=== PATIENT | female | born 1945 | race Caucasian/White ===

== ENCOUNTER → 2016-12-02 | Outpatient (CLI) | payer MEDICARE, OTHER ==
--- NOTE | 2016-12-03 07:48 | MRI ---
EXAM DESCRIPTION: Cervical Spine CLINICAL HISTORY: OTHER SPONDYLOSIS WITH MYELOPATHY COMPARISON: X-rays November 30, 2016 TECHNIQUE: Multiplanar MRI of the cervical spine was performed without contrast. FINDINGS: There is solid interbody fusion from C4 through C6. Mild straightening of the normal cervical lordosis is seen. There is moderate increased signal on T2 and decreased signal on T1-weighted sequences involving the left C2-3 facet joint with moderate subcortical cyst of the left posterior element of C2 measuring 13 mm. Craniocervical junction is maintained. A normal basilar flow void is seen. Spinal cord shows normal MRI signal. C1-2 and craniocervical junction Unremarkable C2-3 Disc desiccation and mild loss of disc space height is seen. Moderate left and mild right facet hypertrophic and degenerative changes are seen with mild left foraminal encroachment. C3-4 Disc desiccation and moderate to severe disc space narrowing is seen. Minimal ventral ridging disc osteophyte complex and mild posterior ligamentum flavum thickening seen. There is mild to moderate spinal canal stenosis with thecal sac measuring 6.5 mm AP centrally. Mild bilateral facet hypertrophic and degenerative changes asymmetric on the right contributes to mild bilateral foraminal encroachment. C4-5 Postsurgical changes as described above. No significant bony spinal canal stenosis or foraminal encroachment is seen. There is facet arthrodesis bilaterally. C5-6 Postsurgical changes as described above. Minimal ventral ridging osteophyte in the left paracentral region contacts the ventral surface of the spinal cord contributing to mild to moderate spinal canal stenosis. The thecal sac measures 6 mm AP centrally. No significant foraminal encroachment. C6-7 Disc desiccation and severe disc space narrowing is seen. A 2 mm broad-based ventral ridging disc osteophyte complex is seen with posterior ligamentum flavum thickening contributing to mild to moderate spinal canal stenosis. The thecal sac measures 6.5 mm AP centrally. Mild bilateral facet hypertrophic and degenerative changes are seen with moderate left foraminal encroachment. C7-T1 Mild disc space narrowing. There is mild disc desiccation. There is 3 mm anterolisthesis of C7 on T1 with moderate bilateral facet hypertrophic and degenerative changes contributing to moderate spinal canal stenosis with decreased CSF signal from around the spinal cord measuring 6 to 7 mm AP centrally. There is at least mild bilateral foraminal encroachment. IMPRESSION: Solid interbody fusion from C4 through C6 C4-5 facet arthrodesis is seen. Advanced disc degenerative changes and facet arthropathy at C3-4 and C6-7 is seen above and below the level of fusion. There is mild to moderate spinal canal stenosis at C3-4, C6-7, and C7-T1. Multilevel foraminal encroachment is seen as described level by level above. Multilevel facet arthropathy is seen most significant on the left at C2-3 with mild to moderate marrow edema suggesting acute inflammation or stress reactive marrow edema. Moderate subcortical cyst in the posterior element of the left C2 is seen. Electronically signed by: Abdiaziz Gillespie MD 12/03/2016 7:46 AM CDT
== END | disposition home or self-care (01) ==
LOC: MRI 07:53
PROVIDERS: ATTEND Family Medicine
DX: M47.12 Other spondylosis with myelopathy, cervical region (principal)

== ENCOUNTER → 2017-01-04 | Outpatient (CLI) | payer MEDICARE, OTHER ==
--- NOTE | 2017-01-04 13:17 | MRI ---
EXAM DESCRIPTION: Lumbar Spine w/o Contrast CLINICAL HISTORY: SPONDYLOLYSIS COMPARISON: February 18, 2016 TECHNIQUE: MRI of the lumbar spine is performed according to our usual protocol with axial and sagittal multi sequence imaging. FINDINGS: Very mild levoscoliosis of the spine centered at the L2-3 level with marrow edema along the right narrowed side of the disc space on either side at this level is little changed from prior study. The conus is positioned at T11-12 with no evidence of intradural or intra-axial mass. The retroperitoneum and paraspinous structures are unremarkable. The lower thoracic spine and thoracolumbar junction and T12-L1 and the disc space at L1-2 appear essentially normal. L1-2: the disc is well hydrated. There is no loss of height. There is no bulging. The facets are unremarkable with no significant hypertrophy. There is no stenosis or impingement. L2-3: Disc desiccation and mild disc narrowing with moderate broad-based annular bulge and facet arthropathy. Circumferential prominence of the disc osteophyte complex without severe stenosis or lateralizing herniation. Adequate left and modestly narrowed right neural foramen secondary to minimal scoliosis at this level. L3-4: Disc degenerative narrowing with moderate facet arthropathy and thecal sac in the lower range of normal with broad-based disc osteophyte complex posteriorly. Mildly narrowed neural foramina bilaterally. L4-5: Advanced disc degenerative disease and narrowing with broad-based annular bulge and mild grade 1 spondylolisthesis L4 on L5 estimated at two or 3 mm with broad-based bulging annulus and advanced facet arthropathy. Moderately severe multifactorial spinal stenosis, little changed from February 2016 examination. The AP diameter of the canal in the midline is approximately six or 7 mm with significant lateral recess stenosis evident. Severe left and milder right L4 foraminal narrowing. L5-S1: Mild disc desiccation and moderate symmetric bulging annulus with adequate central canal and advanced facet arthropathy. No lateralizing herniation is seen. IMPRESSION: 1. Persistent moderately severe central stenosis L4-5 with grade 1 degenerative spondylolisthesis and AP diameter of the canal between six and 7 mm with severe left and milder right L4 foraminal stenosis. 2. Disc degeneration and annular bulges at L5-S1 and L3-4. 3. Disc degeneration and broad-based annular bulge L2-3 with adequate central canal with modestly narrowed right L2 neural foramen secondary to mild scoliosis at this level. Electronically signed by: Irineo Marcos MD 01/04/2017 1:16 PM CDT
== END | disposition home or self-care (01) ==
LOC: MRI 12:00
PROVIDERS: ATTEND Neurological Surgery
DX: M43.06 Spondylolysis, lumbar region (principal); M48.06 Spinal stenosis, lumbar region

== ENCOUNTER → 2018-01-13 | Outpatient (CLI) | payer MEDICARE, OTHER ==
--- NOTE | 2018-01-14 09:13 | MRI ---
Study: MRI of the Right Foot. Indication: PAIN Technique: Multiplanar, multi sequence MRI of the right foot was obtained without intravenous contrast. Comparison: None. Findings: Marrow edema noted throughout the shaft of the third metatarsal with mild surrounding periosteal edema and slight cortical irregularity of the dorsal margin of the distal shaft consistent with a nondisplaced stress fracture. No additional fractures identified. Severe osteoarthritis first MTP joint with complete joint space loss and cortical remodeling. Multifocal subchondral cystic change and moderate joint line osteophytes. Mild osteoarthritis second MTP joint and first IP joint. Dorsal subluxation of the second proximal phalanx in relation to the second metatarsal head by 9 mm with a moderate size joint effusion. Chronicity uncertain. Lisfranc ligament intact. Visualized plantar fascia as well as flexor and extensor tendons intact. Impression: Nondisplaced stress fracture distal shaft third metatarsal. Severe osteoarthritis first MTP joint with mild changes first IP joint and second MTP joint. Dorsal subluxation/dislocation second proximal phalanx. Electronically signed by: Mike Calle MD 01/14/2018 9:11 AM CDT
--- NOTE | 2018-01-18 13:49 | MAM ---
EXAM DESCRIPTION: 3D Screening BILATERAL : Digital Mammography. CLINICAL HISTORY: 72 years Female SCREENING no complaints. No personal history or family history of breast cancer. Childbirth. Postmenopausal 39 years. Hormone replacement 5 or more years ago.. Lifetime risk of developing breast cancer (Tyrer-Cuzick model)(%): 3.5 COMPARISON: 2-D digital screening bilateral study 03/30/2016.. TECHNIQUE: Bilateral CC and MLO projection full-field images, Digital tomosynthesis mammographic technique. Bilateral digital 2-D full-field MLO images. CAD not utilized FINDINGS: The breast parenchymal density pattern is: Scattered areas of fibroglandular density. No skin thickening or nipple retraction. No new focal, stellate mass or density, focal asymmetry , and no suspicious microcalcifications bilaterally. Stable mammograms compared to prior study. Taking into account, differences in mammographic technique. IMPRESSION: BI-RADS CATEGORY: 1 - NEGATIVE FOLLOW UP: Routine digital bilateral screening, one year interval from January 2018. Written communication explaining the findings and follow-up, will be mailed to the patient and referring health care provider. According to the [employer], yearly mammograms are recommended starting at age 40 and continuing as long as a woman is in good health. Any breast change noted on a breast self-exam should be reported promptly to the patient's healthcare provider. Breast MRI is recommended for women with an approximately 20-25% or greater lifetime risk of breast cancer, including women with a strong family history of breast or ovarian cancer and women who have been treated for Hodgkin's disease. A negative mammographic report should not delay tissue diagnosis in patients with significant clinical history or physical findings. Extremely dense breast tissue limits the sensitivity of digital mammography. Electronically signed by: Abraham Sotomayor MD 01/18/2018 1:48 PM CDT
== END ==
LOC: MRI 08:00
PROVIDERS: ATTEND Podiatrist Foot & Ankle Surgery
DX: Z12.31 Encounter for screening mammogram for malignant neoplasm of breast (principal); S92.334A Nondisplaced fracture of third metatarsal bone, right foot, initial encounter for closed fracture; M19.071 Primary osteoarthritis, right ankle and foot; S93.114A Dislocation of interphalangeal joint of right lesser toe(s), initial encounter

== ENCOUNTER → 2019-01-31 | Outpatient (CLI) | payer MEDICARE, OTHER ==
--- NOTE | 2019-01-31 17:22 | MAM ---
EXAM DESCRIPTION: 3D Screening BILATERAL : Digital Mammography. CLINICAL HISTORY: 73 years Female ANNUAL SCREENING . No complaints. No personal or family history of breast cancer. Menarche age 14. Childbirth. Postmenopausal 25+ years. No HRT. Lifetime risk of developing breast cancer (Tyrer-Cuzick model)(%): 3.3. COMPARISON: Bilateral screening digital breast tomosynthesis 13 January 2018. 2-D digital screening bilateral mammography 03/30/2016 TECHNIQUE: Bilateral CC and MLO projection full-field images, digital tomosynthesis mammographic technique. Bilateral digital 2-D full-field MLO images. CAD not available for tomosynthesis or 2-D images. FINDINGS: The breast parenchymal density pattern is: Scattered areas of fibroglandular density. No skin thickening or nipple retraction. No new focal, stellate mass or density, focal asymmetry , and no suspicious microcalcifications Stable mammograms compared to prior study. IMPRESSION: BI-RADS CATEGORY: 1 - NEGATIVE FOLLOW UP: Routine digital bilateral screening, one year interval from January 2019. Written communication explaining the findings and follow-up, will be mailed to the patient and referring health care provider. The FINDINGS and the FOLLOW-UP plan were reviewed in person with the patient after the examination. According to the [employer], yearly mammograms are recommended starting at age 40 and continuing as long as a woman is in good health. Any breast change noted on a breast self-exam should be reported promptly to the patient's healthcare provider. Breast MRI is recommended for women with an approximately 20-25% or greater lifetime risk of breast cancer, including women with a strong family history of breast or ovarian cancer and women who have been treated for Hodgkin's disease. A negative mammographic report should not delay tissue diagnosis in patients with significant clinical history or physical findings. Extremely dense breast tissue limits the sensitivity of digital mammography. Electronically signed by: Abraham Sotomayor MD 01/31/2019 5:20 PM CDT
== END ==
LOC: MAMMO 08:05
PROVIDERS: ATTEND Obstetrics & Gynecology
DX: Z12.31 Encounter for screening mammogram for malignant neoplasm of breast (principal)

== ENCOUNTER → 2019-03-22 | Outpatient (CLI) | payer MEDICARE, OTHER ==
--- NOTE | 2019-03-22 12:51 | MRI ---
EXAM DESCRIPTION: Lumbar Spine w/o Contrast : Magnetic Resonance Imaging. CLINICAL HISTORY: RADICULOPATHY LUMBAR REGION COMPARISON: Previous lumbar noncontrast MRI scan performed on 04 January 2017, prior to fusion surgery. TECHNIQUE: Multiplanar, multiple standard sequences, non contrast MRI, lumbar spine. FINDINGS: L5-S1: The disc is well visualized on axial T2 series 501, image 3. Disc desiccation and minimal disc space loss. Tiny posterior midline bulge. Degenerative hypertrophy of the facet joints and ligaments, more on the right. Moderate narrowing of the right foramen and mild narrowing of the left foramen. Mild canal narrowing. L4-L5: Bilateral transpedicular posterior fusion with bilateral transpedicular screws at each level and unilateral connecting rods. Interbody fusion device in the midline into the right of midline. Decompression of the lamina superior and inferior to the disc space. Canal patent. No fluid collections or cysts, in the canal or extraspinal. Trace anterolisthesis slightly decreased compared to the preoperative study. L3-L4: Disc desiccation with minimal disc space loss. More to the right of midline. Trace anterolisthesis 2 mm. Moderate degenerative hypertrophy of the facet joints and ligaments with subchondral edema at the facets. Posterior compression of the thecal sac. AP canal diameter 10 mm. Moderate to severe right foraminal narrowing and mild left foraminal narrowing. L2-L3: Moderate disc space loss in the midline and to the right of midline with moderate endplate reactive changes in the same location. Minimal posterior broad-based disc bulge. Bilateral mild degenerative hypertrophy of the facet joints and ligaments. Mild canal narrowing. Left foramen is patent. Moderate narrowing of the right foramen. L1-L2: Minimal disc desiccation with disc space maintained. No bulging. Minimal degenerative hypertrophy of the posterior facet joints and ligaments with canal patent. Bilateral foramina are patent. T12-L1: Normal signal in the disc with disc space maintained and no bulging. Minimal thickening of the posterior flavum ligaments. Canal and foramina are patent. Conus terminates at T12. Left convex L2-S1. Paravertebral soft tissues paraspinal muscle atrophy at L5 and S1.. Distal cord normal signal and caliber. Otherwise normal marrow signal in the remaining vertebral bodies and the posterior elements. Vertebral bodies are not compressed at any level. IMPRESSION: 1. Lumbar fusion construct at L4-L5 since the prior MRI study. Multiple levels of disc desiccation, spondylosis, hypertrophic degenerative changes in the facet joints and thickening of the posterior flavum ligaments, and levoscoliosis. Also spondylolisthesis. No compression type vertebral body fractures. 2. Minimal disc desiccation and bulging L5-S1 with no canal or foraminal stenosis. 3. No bony or hardware complications at L4-L5. Trace anterolisthesis improved since the prior study 4. Anterolisthesis at L3-L4 and borderline mild central canal stenosis. Moderate to severe right foraminal narrowing. Correlate for right L3 radiculopathy. Electronically signed by: Abraham Sotomayor MD 03/22/2019 12:49 PM [facility]
== END ==
LOC: MRI 08:00
PROVIDERS: ATTEND Family Medicine
DX: M51.17 Intervertebral disc disorders with radiculopathy, lumbosacral region (principal); M43.16 Spondylolisthesis, lumbar region; Z98.1 Arthrodesis status

== ENCOUNTER → 2019-04-21 | Outpatient (CLI) | payer MEDICARE, OTHER ==
--- NOTE | 2019-04-21 13:47 | CT ---
EXAM DESCRIPTION: Chest w/Contrast CLINICAL HISTORY: 73 years Female, COUGH COMPARISON: CT chest 06/01/2013 TECHNIQUE: CT images through the chest with IV contrast. Multiplanar reformations provided. This exam was performed according to our departmental dose-optimization program, which includes automated exposure control, adjustment of the mA and/or kV according to patient size and/or use of iterative reconstruction technique. CT CHEST FINDINGS: Heart and mediastinum: Normal heart size. No pericardial effusion. Unremarkable esophagus. Mild atherosclerosis. No mediastinal or hilar adenopathy. Thyroid Gland: Normal. Lungs: Mild dependent atelectasis. No suspicious nodule, mass, or consolidation. Airways: Normal. Pleura: Normal. Musculoskeletal and Soft Tissues: No acute fracture or aggressive appearing osseous lesion. Soft tissues unremarkable. Subphrenic Structures: Normal. IMPRESSION: 1. No acute abnormality of the chest. 2. Mild atherosclerosis. Electronically signed by: Carlito Traylor MD 04/21/2019 1:46 PM [employer]
== END ==
LOC: CT 09:38
PROVIDERS: ATTEND Family Medicine
DX: R05 Cough (principal); I70.90 Unspecified atherosclerosis

== ENCOUNTER → 2019-09-21 | Outpatient (CLI) | payer MEDICARE, OTHER ==
--- NOTE | 2019-09-21 13:06 | RAD ---
5 radiographs lumbar spine Indication: SACROILITIS NOT ELSEWHERE CLASSIFIED Comparison: MRI March 22, 2019 Impression: L4-L5 posterior interbody fusion construct with laminectomy. No hardware complication identified. Vertebral body height maintained. Mild levocurvature lumbar spine. Severe disc space height loss at L2-L3 and L3-L4. Moderate to severe disc space height loss L5-S1. Facet arthrosis throughout the lumbar spine. Osteopenia. If this is a new finding, DEXA scan recommended as well as evaluation for possible osteoporosis treatment. Electronically signed by: Mike Calle MD 09/21/2019 1:05 PM CDT
== END ==
LOC: RAD 08:47
PROVIDERS: ATTEND Family Medicine Sports Medicine
DX: M46.1 Sacroiliitis, not elsewhere classified (principal); M85.88 Other specified disorders of bone density and structure, other site; M47.896 Other spondylosis, lumbar region; M41.86 Other forms of scoliosis, lumbar region; Z98.1 Arthrodesis status

== ENCOUNTER → 2020-02-02 | Outpatient (CLI) | payer MEDICARE, OTHER ==
--- NOTE | 2020-02-06 08:50 | MAM ---
EXAM DESCRIPTION: 3D Screening BILATERAL : Digital Mammography. CLINICAL HISTORY: 74 years Female SCREENING . No complaints. No family history of breast cancer. Menarche age 14. Childbirth age 19. Menopause age 34. No HRT. Lifetime risk of developing breast cancer (Tyrer-Cuzick model)(%): 3.1. COMPARISON: Bilateral screening digital breast tomosynthesis January 2019 and January 2018.. TECHNIQUE: Bilateral CC and MLO projection full-field images, digital tomosynthesis mammographic technique. Bilateral digital 2-D full-field MLO images. CAD available for 2-D images. FINDINGS: The breast parenchymal density pattern is: Scattered areas of fibroglandular density. No skin thickening or nipple retraction. Solitary microcalcifications. Axillary nodes. No new focal, stellate mass or density, focal asymmetry , and no suspicious microcalcifications bilaterally. Stable mammograms compared to prior study. IMPRESSION: Benign exam. BIRAD CATEGORY: 2 BENIGN FINDINGS. RECOMMENDATIONS: FOLLOW UP: Routine digital bilateral mammographic screening, one year interval from January 2020. Written communication explaining the IMPRESSION and follow-up, will be mailed to the patient and referring health care provider. According to the [employer], yearly mammograms are recommended starting at age 40 and continuing as long as a woman is in good health. Any breast change noted on a breast self-exam should be reported promptly to the patient's healthcare provider. Breast MRI is recommended for women with an approximately 20-25% or greater lifetime risk of breast cancer, including women with a strong family history of breast or ovarian cancer and women who have been treated for Hodgkin's disease. A negative mammographic report should not delay tissue diagnosis in patients with significant clinical history or physical findings. Extremely dense breast tissue limits the sensitivity of digital mammography. Electronically signed by: Abraham Sotomayor MD 02/06/2020 8:48 AM CDT
== END ==
LOC: MAMMO 02-01 08:20
PROVIDERS: ATTEND Family Medicine
DX: Z12.31 Encounter for screening mammogram for malignant neoplasm of breast (principal)